=== PATIENT | female | born 2000 | race Caucasian/White ===

== ENCOUNTER 2019-05-27 18:53 | Inpatient (IN) | payer MEDICAID ==
[2019-05-27] MEDS ORDERED: Tranexamic Acid 1,000 MG in Sodium Chloride 0.9% 100 ML IV PRN (20:56)
[2019-05-27] MEDS ORDERED: Sodium Chloride 0.9% 10 ML SDV IV PRN ×2 (20:56→23:32)
[2019-05-27] MEDS ORDERED: Ondansetron 4 MG/2 ML SDV IVPUSH PRN (20:56)
[2019-05-27] MEDS ORDERED: Lidocaine 1% 50 ML MDV INJECT PRN (20:56)
[2019-05-27] MEDS ORDERED: Water For Irrigation,Sterile 1,000 ML Container IRR PRN (20:56)
[2019-05-27] MEDS ORDERED: Misoprostol 200 MCG Tab PO PRN (20:56)
[2019-05-27] MEDS ORDERED: Carboprost Tromethamine 250 MCG/1 ML Amp IM PRN (20:56)
[2019-05-27] MEDS ORDERED: Nalbuphine 10 MG/1 ML Vial IVPUSH PRN (20:56)
[2019-05-27] MEDS ORDERED: Methylergonovine 0.2 MG/1 ML Amp IM PRN (20:56)
[2019-05-27] MEDS ORDERED: Butorphanol 1 MG/ML SDV IVPUSH PRN (20:56)
[2019-05-27] MEDS ORDERED: Sodium Chloride 0.9% 2.5 ML Syringe FLUSH PRN ×2 (20:56→23:32)
[2019-05-27] MEDS ORDERED: Terbutaline 1 MG/ML SDV SUBCUT PRN (20:56)
[2019-05-27] MEDS ORDERED: Sodium Chloride 0.9% 10 ML Syringe FLUSH PRN ×2 (20:56→23:32)
[2019-05-27] MEDS ORDERED: Oxytocin/0.9 % Sodium Chloride 30 UNIT/500 ML BAG IV SCH ×2 (21:00)
[2019-05-27] MEDS: Lactated Ringers 1,000 ML IV SCH ×2 (22:02→23:26)
[2019-05-27 22:20] LABS: BLOOD UREA NITROGEN,BUN 9 mg/dL (7.0-18.0); CARBON DIOXIDE,CO2 20.5 mmol/L (21.0-32.0); CHLORIDE,CL 105 mmol/L (98-107); GLUCOSE RANDOM 73 mg/dL (74-106); POTASSIUM,K 3.7 mmol/L (3.5-5.1); SODIUM,NA 140 mmol/L (136-145)
[2019-05-27] MEDS ORDERED: Calcium Gluconate 10% 1 GM/10 ML SDV IV PRN (23:32)
[2019-05-27] MEDS ORDERED: Magnesium Sulfate/Water 4 GM in Premix Bag 1 BAG IV ONE (23:32)
[2019-05-27] MEDS ORDERED: Ropivacaine HCl/PF 100 ML ONE (23:52)
[2019-05-27] MEDS ORDERED: fentaNYL 100 MCG/2 ML SDV ONE (23:52)
--- NOTE | 2019-05-28 00:33 | PCM.PREANE ---
Preanesthetic Assessment - Anesthesia/Transfusion/Family Hx Anesthesia History: Prior Anesthesia Without Reaction Family History of Anesthesia Reaction: No - Physical Assessment NPO Status Date: 05/27/19 NPO Status Time: 22:00 Height: 1.63 m Weight: 74.389 kg ASA Class: 1 - Lab Values: Laboratory Last Values WBC 12.72 K/uL (4.0-11.0) H 05/27/19 21:42 RBC 3.89 M/uL (4.30-5.90) L 05/27/19 21:42 Hgb 11.3 g/dL (12.0-16.0) L 05/27/19 21:42 Hct 34.0 % (36.0-46.0) L 05/27/19 21:42 MCV 87.4 fL (80.0-98.0) 05/27/19 21:42 MCH 29.0 pg (27.0-32.0) 05/27/19 21:42 MCHC 33.2 g/dL (31.0-37.0) 05/27/19 21:42 RDW Std Deviation 40.2 fl (28.0-62.0) 05/27/19 21:42 RDW Coeff of Clint 13 % (11.0-15.0) 05/27/19 21:42 Plt Count 281 K/uL (150-400) 05/27/19 21:42 MPV 10.90 fL (7.40-12.00) 05/27/19 21:42 Nucleated RBC % 0.0 /100WBC 05/27/19 21:42 Nucleated RBCs # 0 K/uL 05/27/19 21:42 Sodium 140 mmol/L (136-145) 05/27/19 21:42 Potassium 3.7 mmol/L (3.5-5.1) 05/27/19 21:42 Chloride 105 mmol/L (98-107) 05/27/19 21:42 Carbon Dioxide 20.5 mmol/L (21.0-32.0) L 05/27/19 21:42 BUN 9 mg/dL (7.0-18.0) 05/27/19 21:42 Creatinine 0.6 mg/dL (0.6-1.0) 05/27/19 21:42 Est Cr Clr Drug Dosing TNP 05/27/19 21:42 Estimated GFR (MDRD) > 60.0 ml/min 05/27/19 21:42 Glucose 73 mg/dL (74-106) L 05/27/19 21:42 Uric Acid 6.0 mg/dL (2.6-7.2) 05/27/19 21:42 Calcium 8.6 mg/dL (8.5-10.1) 05/27/19 21:42 Total Bilirubin 0.1 mg/dL (0.2-1.0) L 05/27/19 21:42 AST 14 IU/L (15-37) L 05/27/19 21:42 ALT 16 IU/L (14-63) 05/27/19 21:42 Alkaline Phosphatase 134 U/L (46-116) H 05/27/19 21:42 Total Protein 6.7 g/dL (6.4-8.2) 05/27/19 21:42 Albumin 2.5 g/dL (3.4-5.0) L 05/27/19 21:42 Globulin 4.2 g/dL (2.6-4.0) H 05/27/19 21:42 Albumin/Globulin Ratio 0.6 (0.9-1.6) L 05/27/19 21:42 Ur Random Creatinine 66.6 mg/dL 05/27/19 19:00 U Random Total Protein 28.4 mg/dL (<11.9) H 05/27/19 19:00 Protein/Creatinin Ratio 0.4 05/27/19 19:00 Blood Type O NEGATIVE 05/27/19 21:42 Antibody Screen NEGATIVE 05/27/19 21:42 - Allergies Allergies/Adverse Reactions: Allergies Allergy/AdvReac Type Severity Reaction Status Date / Time pollen extracts Allergy Facial Verified 05/06/19 17:46 Swelling - Acknowledgements Anesthesia Type Planned: Epidural Pt an Appropriate Candidate for the Planned Anesthesia: Yes Alternatives and Risks of Anesthesia Discussed w Pt/Guardian: Yes Pt/Guardian Understands and Agrees with Anesthesia Plan: Yes PreAnesthesia Questionnaire - CURRENT (IN HOUSE) MEDS Current Meds: Current Medications Butorphanol Tartrate (Stadol) 1 mg IVPUSH Q1H PRN PRN Reason: Pain Calcium Gluconate (Calcium Gluconate) 1 gm IV ASDIRECTED PRN PRN Reason: respiratory distress Carboprost Tromethamine (Hemabate Ds) 250 mcg IM ASDIRECTED PRN PRN Reason: Post Hemorrhage Lactated Ringer's (Ringers, Lactated) 1,000 mls @ 150 mls/hr IV ASDIRECTED RITO Last Admin: 05/27/19 23:26 Dose: 999 mls/hr Oxytocin/Sodium Chloride (Oxytocin 30 Unit/500 Ml-Ns) 30 unit in 500 mls @ 555 mls/hr IV TITRATE RITO Oxytocin/Sodium Chloride (Oxytocin 30 Unit/500 Ml-Ns) 30 unit in 500 mls @ 2 mls/hr IV TITRATE RITO; Protocol Last Titration: 05/27/19 22:45 Dose: 4 munits/min, 4 mls/hr Tranexamic Acid 1,000 mg/ (Sodium Chloride) 110 mls @ 660 mls/hr IV ONETIME PRN PRN Reason: Bleeding Magnesium Sulfate (Magnesium Sulfate In Water Premix) 20 gm in 500 mls @ 50 mls /hr IV ASDIRECTED RITO; Protocol Lidocaine HCl (Xylocaine 1%) 50 ml INJECT ONETIME PRN PRN Reason: Laceration repair Methylergonovine Maleate (Methergine) 0.2 mg IM ASDIRECTED PRN PRN Reason: Post Hemorrhage Misoprostol (Cytotec) 200 mcg PO ONETIME PRN PRN Reason: Post Hemorrhage Nalbuphine HCl (Nubain) 10 mg IVPUSH Q1H PRN PRN Reason: Pain (severe 7-10) Ondansetron HCl (Zofran) 4 mg IVPUSH Q4H PRN PRN Reason: Nausea/Vomiting Sodium Chloride (Saline Flush) 10 ml FLUSH ASDIRECTED PRN PRN Reason: Keep Vein Open Sodium Chloride (Saline Flush) 2.5 ml FLUSH ASDIRECTED PRN PRN Reason: Keep Vein Open Sodium Chloride (Normal Saline) 10 ml IV ASDIRECTED PRN PRN Reason: IV Use Sodium Chloride (Saline Flush) 10 ml FLUSH ASDIRECTED PRN PRN Reason: Keep Vein Open Sodium Chloride (Saline Flush) 2.5 ml FLUSH ASDIRECTED PRN PRN Reason: Keep Vein Open Sodium Chloride (Normal Saline) 10 ml IV ASDIRECTED PRN PRN Reason: IV Use Sterile Water (Sterile Water For Irrigation) 1,000 ml IRR ASDIRECTED PRN PRN Reason: delivery Terbutaline Sulfate (Brethine) 0.25 mg SUBCUT ASDIRECTED PRN PRN Reason: Tacysystole Discontinued Medications Fentanyl (Sublimaze) Confirm Administered Dose 100 mcg .ROUTE .STK-MED ONE Stop: 05/27/19 23:53 Magnesium Sulfate 4 gm/ Premix 100 mls @ 300 mls/hr IV BOLUS ONE Stop: 05/27/19 23:51 Ropivacaine (Naropin 0.2%) Confirm Administered Dose 100 mls @ as directed .ROUTE .STK-MED ONE Stop: 05/27/19 23:53
--- NOTE | 2019-05-28 00:37 | PCM.PRNOTE ---
- Free Text/Narrative Note: Anes Note Patient requests epidural for L&D. Sitting position. Level L3-L4 midline approach. Sterile technique. Chloraprep scrub to lumbar area. Sterile fenestrated drape applied. Epidural space easily achieved single attempt with ease using NISHA technique. NISHA at 3 cm. Cath threaded 5 cm with ease. Cath secured at skin using sterile clear adhesive dressing. Test 2348 3 cc 1.5% lido with epi neg. 2351 Load 10 cc 0.2% ropivicaine with 1 mcg cc fentanyl in slow divided doses. 0005 Pump started with 90 cc same solution. rate is 8 cc hr with 6 cc q 20 min prn bolus. Humberto well. Time with patient [id number] Brayan Burton [employer] H[employer]ESS
[2019-05-28] MEDS: Magnesium Sulfate/Water 20 GM/500 ML BAG IV SCH ×2 (01:15→11:23)
--- NOTE | 2019-05-28 07:00 | PCM.DEL ---
L & D Note - General Info Date of Service: 05/28/19 Mother's Due Date: 05/31/19 - Delivery Note Labor: Augmented by ARM, Augmented by Oxytocin Delivery Outcome: Livebirth Delivery Method: Spontaneous Vaginal Delivery-Single Presentation: Left Occiput Anterior (SARWAT) Nuchal Cord: Present Prep: Other Anesthesia Type: Epidural Amniotic Fluid Description: Meconium Stained Episiotomy Type: None Laceration: 1st Degree Suture type: Vicryl Suture size: 3-0 Placenta: Intact, Spontaneous Cord: 3 Vessels Estimated Blood Loss: 300 Resuscitation Needed: No : Suctioned Score 1 min: 8 Score 5 min: 9 Delivery Comments (Free Text/Narrative):: Liveborn male weight 3450 grams. Magnesium for seizure prophylaxis through labor and due to pre-eclampsia. - General Info Date of Service: 05/28/19 - Patient Data Weight - Most Recent: 74.389 kg Lab Results Last 24 Hours: Laboratory Results - last 24 hr 05/27/19 05/27/19 05/27/19 Range/Units 19:00 21:42 21:42 WBC 12.72 H (4.0-11.0) K/uL RBC 3.89 L (4.30-5.90) M/uL Hgb 11.3 L (12.0-16.0) g/dL Hct 34.0 L (36.0-46.0) % MCV 87.4 (80.0-98.0) fL MCH 29.0 (27.0-32.0) pg MCHC 33.2 (31.0-37.0) g/dL RDW Std Deviation 40.2 (28.0-62.0) fl RDW Coeff of Clint 13 (11.0-15.0) % Plt Count 281 (150-400) K/uL MPV 10.90 (7.40-12.00) fL Nucleated RBC % 0.0 /100WBC Nucleated RBCs # 0 K/uL Sodium (136-145) mmol/L Potassium (3.5-5.1) mmol/L Chloride (98-107) mmol/L Carbon Dioxide (21.0-32.0) mmol/L BUN (7.0-18.0) mg/dL Creatinine (0.6-1.0) mg/dL Est Cr Clr Drug Dosing Estimated GFR (MDRD) ml/min Glucose (74-106) mg/dL Uric Acid (2.6-7.2) mg/dL Calcium (8.5-10.1) mg/dL Total Bilirubin (0.2-1.0) mg/dL AST (15-37) IU/L ALT (14-63) IU/L Alkaline Phosphatase (46-116) U/L Total Protein (6.4-8.2) g/dL Albumin (3.4-5.0) g/dL Globulin (2.6-4.0) g/dL Albumin/Globulin Ratio (0.9-1.6) Ur Random Creatinine 66.6 mg/dL U Random Total Protein 28.4 H (<11.9) mg/dL Protein/Creatinin Ratio 0.4 Blood Type O NEGATIVE Antibody Screen NEGATIVE 05/27/19 05/27/19 Range/Units 21:42 21:42 WBC (4.0-11.0) K/uL RBC (4.30-5.90) M/uL Hgb (12.0-16.0) g/dL Hct (36.0-46.0) % MCV (80.0-98.0) fL MCH (27.0-32.0) pg MCHC (31.0-37.0) g/dL RDW Std Deviation (28.0-62.0) fl RDW Coeff of Clint (11.0-15.0) % Plt Count (150-400) K/uL MPV (7.40-12.00) fL Nucleated RBC % /100WBC Nucleated RBCs # K/uL Sodium 140 (136-145) mmol/L Potassium 3.7 (3.5-5.1) mmol/L Chloride 105 (98-107) mmol/L Carbon Dioxide 20.5 L (21.0-32.0) mmol/L BUN 9 (7.0-18.0) mg/dL Creatinine 0.6 (0.6-1.0) mg/dL Est Cr Clr Drug Dosing TNP Estimated GFR (MDRD) > 60.0 ml/min Glucose 73 L (74-106) mg/dL Uric Acid 6.0 (2.6-7.2) mg/dL Calcium 8.6 (8.5-10.1) mg/dL Total Bilirubin 0.1 L (0.2-1.0) mg/dL AST 14 L (15-37) IU/L ALT 16 (14-63) IU/L Alkaline Phosphatase 134 H (46-116) U/L Total Protein 6.7 (6.4-8.2) g/dL Albumin 2.5 L (3.4-5.0) g/dL Globulin 4.2 H (2.6-4.0) g/dL Albumin/Globulin Ratio 0.6 L (0.9-1.6) Ur Random Creatinine mg/dL U Random Total Protein (<11.9) mg/dL Protein/Creatinin Ratio Blood Type Antibody Screen Med Orders - Current: Current Medications Butorphanol Tartrate (Stadol) 1 mg IVPUSH Q1H PRN PRN Reason: Pain Calcium Gluconate (Calcium Gluconate) 1 gm IV ASDIRECTED PRN PRN Reason: respiratory distress Carboprost Tromethamine (Hemabate Ds) 250 mcg IM ASDIRECTED PRN PRN Reason: Post Hemorrhage Lactated Ringer's (Ringers, Lactated) 1,000 mls @ 150 mls/hr IV ASDIRECTED RITO Last Infusion: 05/28/19 00:57 Dose: Infused Oxytocin/Sodium Chloride (Oxytocin 30 Unit/500 Ml-Ns) 30 unit in 500 mls @ 555 mls/hr IV TITRATE RITO Oxytocin/Sodium Chloride (Oxytocin 30 Unit/500 Ml-Ns) 30 unit in 500 mls @ 2 mls/hr IV TITRATE RITO; Protocol Last Titration: 05/27/19 22:45 Dose: 4 munits/min, 4 mls/hr Tranexamic Acid 1,000 mg/ (Sodium Chloride) 110 mls @ 660 mls/hr IV ONETIME PRN PRN Reason: Bleeding Magnesium Sulfate (Magnesium Sulfate In Water Premix) 20 gm in 500 mls @ 50 mls /hr IV ASDIRECTED RITO; Protocol Last Admin: 05/28/19 01:15 Dose: 2 gm/hr, 50 mls/hr Lidocaine HCl (Xylocaine 1%) 50 ml INJECT ONETIME PRN PRN Reason: Laceration repair Methylergonovine Maleate (Methergine) 0.2 mg IM ASDIRECTED PRN PRN Reason: Post Hemorrhage Misoprostol (Cytotec) 200 mcg PO ONETIME PRN PRN Reason: Post Hemorrhage Nalbuphine HCl (Nubain) 10 mg IVPUSH Q1H PRN PRN Reason: Pain (severe 7-10) Ondansetron HCl (Zofran) 4 mg IVPUSH Q4H PRN PRN Reason: Nausea/Vomiting Sodium Chloride (Saline Flush) 10 ml FLUSH ASDIRECTED PRN PRN Reason: Keep Vein Open Sodium Chloride (Saline Flush) 2.5 ml FLUSH ASDIRECTED PRN PRN Reason: Keep Vein Open Sodium Chloride (Normal Saline) 10 ml IV ASDIRECTED PRN PRN Reason: IV Use Sodium Chloride (Saline Flush) 10 ml FLUSH ASDIRECTED PRN PRN Reason: Keep Vein Open Sodium Chloride (Saline Flush) 2.5 ml FLUSH ASDIRECTED PRN PRN Reason: Keep Vein Open Sodium Chloride (Normal Saline) 10 ml IV ASDIRECTED PRN PRN Reason: IV Use Sterile Water (Sterile Water For Irrigation) 1,000 ml IRR ASDIRECTED PRN PRN Reason: delivery Terbutaline Sulfate (Brethine) 0.25 mg SUBCUT ASDIRECTED PRN PRN Reason: Tacysystole Discontinued Medications Fentanyl (Sublimaze) Confirm Administered Dose 100 mcg .ROUTE .STK-MED ONE Stop: 05/27/19 23:53 Magnesium Sulfate 4 gm/ Premix 100 mls @ 300 mls/hr IV BOLUS ONE Stop: 05/27/19 23:51 Last Admin: 05/28/19 00:50 Dose: 300 mls/hr Ropivacaine (Naropin 0.2%) Confirm Administered Dose 100 mls @ as directed .ROUTE .STK-MED ONE Stop: 05/27/19 23:53 - Problem List & Annotations (1) Pre-eclampsia SNOMED Code(s): 456564732 Code(s): O14.90 - UNSPECIFIED PRE-ECLAMPSIA, UNSPECIFIED TRIMESTER Status: Acute Current Visit: Yes (2) Vaginal delivery SNOMED Code(s): 366808064 Code(s): O80 - ENCOUNTER FOR FULL-TERM UNCOMPLICATED DELIVERY Status: Acute Current Visit: Yes - Problem List Review Problem List Initiated/Reviewed/Updated: Yes - My Orders Last 24 Hours: My Active Orders 05/27/19 20:56 Patient Status [ADT] Routine Bedrest Bathroom Privileges [RC] ASDIRECTED Communication Order [RC] ASDIRECTED Communication Order [RC] ASDIRECTED Communication Order [RC] ASDIRECTED Heart Tones [RC] CONTINUOUS Non Stress Test [RC] PER UNIT ROUTINE May Shower [RC] ASDIRECTED Notify Provider [RC] PRN Notify Provider [RC] PRN Notify Provider [RC] PRN Notify Provider [RC] STAT Oxygen Therapy [RC] ASDIRECTED Up ad Karli [RC] ASDIRECTED Vaginal Exam [RC] PRN Vaginal Exam [RC] PRN Vital Signs [RC] PER UNIT ROUTINE Vital Signs [RC] PER UNIT ROUTINE Butorphanol [Stadol] 1 mg IVPUSH Q1H PRN Carboprost Tromethamine [Hemabate DS] 250 mcg IM ASDIRECTED PRN Lidocaine 1% [Xylocaine 1%] 50 ml INJECT ONETIME PRN Methylergonovine [Methergine] 0.2 mg IM ASDIRECTED PRN Nalbuphine [Nubain] 10 mg IVPUSH Q1H PRN Ondansetron [Zofran] 4 mg IVPUSH Q4H PRN Sodium Chloride 0.9% [Normal Saline] 10 ml IV ASDIRECTED PRN Sodium Chloride 0.9% [Saline Flush] 10 ml FLUSH ASDIRECTED PRN Sodium Chloride 0.9% [Saline Flush] 2.5 ml FLUSH ASDIRECTED PRN Terbutaline [Brethine] 0.25 mg SUBCUT ASDIRECTED PRN Tranexamic Acid [Cyklokapron] 1,000 mg Sodium Chloride 0.9% [Normal Saline] 100 ml IV ONETIME Water For Irrigation,Sterile [Sterile Water for Irrigation] 1,000 ml IRR ASDIRECTED PRN miSOPROStoL [Cytotec] 200 mcg PO ONETIME PRN Scalp Electrode [WOMSER] Per Unit Routine Peripheral IV Insertion Adult [OM.PC] Routine Sequential Compression Device [OM.PC] Routine Resuscitation Status Routine 05/27/19 20:59 Antiembolic Devices [RC] PER UNIT ROUTINE 05/27/19 21:00 Lactated Ringers [Ringers, Lactated] 1,000 ml IV ASDIRECTED Oxytocin/0.9 % Sodium Chloride [Oxytocin 30 Unit/500 ML-NS] 30 unit in 500 ml IV TITRATE Oxytocin/0.9 % Sodium Chloride [Oxytocin 30 Unit/500 ML-NS] 30 unit in 500 ml IV TITRATE Medication Administration Instruction [OM.PC] Q3H 05/27/19 21:42 RPR (SYPHILIS SERO) W/ RFLX [REF] Routine 05/27/19 23:32 Bedrest [RC] ASDIRECTED Communication Order [RC] PRN Communication Order [RC] PRN Height and Weight [RC] DAILY Intake and Output [RC] QSHIFT Notify Provider [RC] PRN Oxygen Therapy [RC] PRN Vital Signs [RC] PER UNIT ROUTINE Calcium Gluconate 1 gm IV ASDIRECTED PRN Sodium Chloride 0.9% [Normal Saline] 10 ml IV ASDIRECTED PRN Sodium Chloride 0.9% [Saline Flush] 10 ml FLUSH ASDIRECTED PRN Sodium Chloride 0.9% [Saline Flush] 2.5 ml FLUSH ASDIRECTED PRN Electronic Heart Tones Ext w TOCO [WOMSER] Per Unit Routine Peripheral IV Insertion Adult [OM.PC] Routine 05/27/19 23:33 Equipment to Bedside [RC] PRN Heart Tones [RC] ASDIRECTED Notify Provider Status Change [RC] ASDIRECTED 05/27/19 23:45 Magnesium Sulfate/Water [Magnesium Sulfate in Water Premix] 20 gm in 500 ml IV ASDIRECTED Deep Tendon Reflexes [WOMSER] Q1H 05/27/19 Breakfast Fluid Restriction [DIET] 05/28/19 00:45 Deep Tendon Reflexes [WOMSER] Q1H 05/28/19 01:45 Deep Tendon Reflexes [WOMSER] Q1H 05/28/19 02:45 Deep Tendon Reflexes [WOMSER] Q1H 05/28/19 03:45 Deep Tendon Reflexes [WOMSER] Q1H 05/28/19 04:45 Deep Tendon Reflexes [WOMSER] Q1H 05/28/19 05:40 MAGNESIUM [CHEM] Q6H 05/28/19 05:45 Deep Tendon Reflexes [WOMSER] Q1H 05/28/19 06:45 Deep Tendon Reflexes [WOMSER] Q1H 05/28/19 07:45 Deep Tendon Reflexes [WOMSER] Q1H 05/28/19 08:45 Deep Tendon Reflexes [WOMSER] Q1H 05/28/19 09:45 Deep Tendon Reflexes [WOMSER] Q1H 05/28/19 10:45 Deep Tendon Reflexes [WOMSER] Q1H 05/28/19 11:45 MAGNESIUM [CHEM] Q6H Deep Tendon Reflexes [WOMSER] Q1H 05/28/19 12:45 Deep Tendon Reflexes [WOMSER] Q1H 05/28/19 13:45 Deep Tendon Reflexes [WOMSER] Q1H 05/28/19 14:45 Deep Tendon Reflexes [WOMSER] Q1H 05/28/19 15:45 Deep Tendon Reflexes [WOMSER] Q1 05/28/19 16:45 Deep Tendon Reflexes [WOMSER] Q1 05/28/19 17:45 MAGNESIUM [CHEM] Q6H Deep Tendon Reflexes [WOMSER] Q1 05/28/19 18:45 Deep Tendon Reflexes [WOMSER] Q1 05/28/19 19:45 Deep Tendon Reflexes [WOMSER] Q1 05/28/19 20:45 Deep Tendon Reflexes [WOMSER] Q1 05/28/19 21:45 Deep Tendon Reflexes [WOMSER] Q1 05/28/19 22:45 Deep Tendon Reflexes [WOMSER] Q1 05/28/19 23:45 MAGNESIUM [CHEM] Q6H
[2019-05-28] MEDS ORDERED: Docusate Sodium 100 MG Cap PO PRN (07:16)
[2019-05-28] MEDS ORDERED: Lanolin 100% Cream 7 GM Tube TOP PRN (07:16)
[2019-05-28] MEDS ORDERED: Bisacodyl 10 MG Supp RECTAL PRN (07:16)
[2019-05-28] MEDS ORDERED: Ibuprofen 400 MG Tab PO PRN (07:16)
[2019-05-28] MEDS ORDERED: Benzocaine/Menthol 20%-0.5% Spray 78 GM Cannister TOP PRN (07:16)
[2019-05-28] MEDS ORDERED: Acetaminophen 500 MG Tab PO PRN ×2 (07:16)
[2019-05-28] MEDS ORDERED: Witch Hazel Medicated Pads 40/Jar TOP PRN (07:16)
--- NOTE | 2019-05-28 08:42 | OR ---
SURGEON: Isabel Platt M.D. DATE OF PROCEDURE: 05/28/2019 PREOPERATIVE DIAGNOSES: 1. 39-3/7 weeks intrauterine . 2. Preeclampsia. POSTOPERATIVE DIAGNOSES: 1. 39-3/7 weeks intrauterine . 2. Preeclampsia. PROCEDURE: Pitocin augmentation of labor, artificial rupture of membranes, term spontaneous vaginal delivery, and repair of first-degree laceration. Continuing on magnesium for seizure prophylaxis. PRIMARY SURGEON: Isabel Platt M.D. ANESTHESIA: Epidural. ESTIMATED BLOOD LOSS: Less than 300 mL. FINDINGS: Liveborn male, scores of 8 and 9, weighing 3450 g. Placenta was spontaneous, Drake with trailing membranes, did not require manual examination. First-degree perineal laceration repaired. COMPLICATIONS: None known. DISPOSITION: Stable to recovery. BRIEF HISTORY: This is a 18-year-old female. She is G3, P0-0-2-0 who presents at 39-3/7 weeks gestation with regular contractions. She was 3 cm dilated, 90% effaced, 0 station. However, diastolic blood pressures were persistently in the mid upper 90s. She denied headache or visual changes. Preeclamptic laboratories were negative except for elevated protein-creatinine ratio of 0.4. Additionally, she was hyperreflexic on examination, and therefore, decision was made to keep her, augment labor, and start magnesium for seizure prophylaxis. She did have a late [place]. She did have a history of herpes remotely by serology only. She has had no lesions during the , and bright light examination at the onset of labor was negative, and she is known to be group B streptococcus negative. She received Pitocin up to a maximum dose of 4 milliunits per minute, and she received an epidural for pain control. When she was 6 cm to 7 cm dilated, artificial rupture of membranes was performed. Blood- stained amniotic fluid was noted. She continued to have category 1 heart tones throughout labor. She began to have deceleration. She was checked and was complete. DESCRIPTION OF PROCEDURE: With the patient in dorsal lithotomy position, the patient pushed over a 15- minute time period to a 5+ station at which time, the head was delivered spontaneously and atraumatically over the perineum with support. Nuchal cord was noted, but I was able to deliver through the nuchal cord with the 's shoulders and body without any difficulty. The nuchal cord was reduced. The was handed to the mother in the presence of the nurse attending delivery. The amniotic fluid at delivery was meconium stained. The was bulb suctioned by nose and mouth. The mouth was wiped, and after the cord had ceased to pulsate, it was doubly clamped and cut. Cord blood was collected for cord ABGs as well as routine cord blood sampling. Pitocin was initiated after delivery of the infant to assist with delivery. The placenta which was delivered spontaneously Drake intact but with trailing membranes. The membranes were repetitively turned and without a significant traction delivered, and upon careful inspection of the placenta, it was intact. Upon inspection of the pelvis and perineum, there were no periurethral, vaginal sidewall, cervical, or rectal lacerations. There was a superficial perineal laceration that was repaired with a running deep suture for the perineum and a subcuticular suture for the skin. This did not extend into the vagina. Final sponge, needle, and instrument counts were correct. There were no known complications. Mother and baby remained in LDR in good condition. She will be continued on magnesium . YOEL / GANGA /[id number]
--- NOTE | 2019-05-28 09:37 | PCM48HPAN ---
Post Anesthesia Note - EVALUATION WITHIN 48HRS OF ANESTHETIC Vital Signs in Normal Range: Yes Patient Participated in Evaluation: Yes Respiratory Function Stable: Yes Airway Patent: Yes Cardiovascular Function Stable: Yes Hydration Status Stable: Yes Pain Control Satisfactory: Yes Nausea and Vomiting Control Satisfactory: Yes Mental Status Recovered: Yes
[2019-05-28] MEDS: Ibuprofen 800 MG Tab PO PRN ×2 (09:58→20:06)
--- NOTE | 2019-05-29 05:23 | PCM.PNPP ---
- General Info Date of Service: 05/29/19 Admission Dx/Problem (Free Text): Patient reports she is doing well. Denies preeclampsia symptoms, headache yesterday resolved with Ibuprofen. Minimal-moderate lochia. Minimal cramping pain. going well. Has not ambulated or voided yet due to magnesium. Functional Status: Reports: Pain Controlled - Review of Systems General: Reports: No Symptoms HEENT: Reports: No Symptoms Pulmonary: Reports: No Symptoms Cardiovascular: Reports: No Symptoms Gastrointestinal: Reports: No Symptoms Genitourinary: Reports: No Symptoms Musculoskeletal: Reports: No Symptoms Skin: Reports: No Symptoms Neurological: Reports: No Symptoms Psychiatric: Reports: No Symptoms - Patient Data Vital Signs - Most Recent: Last Vital Signs Temp 37.0 C 05/28/19: Pulse 88 05/28/19 19: Resp 17 05/28/19: BP 130/85 05/28/19 19: Pulse Ox 99 05/28/19 19:20 Weight - Most Recent: 74.389 kg I&O - Last 24 Hours: Intake & Output 05/28/19 05/28/19 05/29/19 14:59 22:59 06:59 Intake Total 1025 Output Total 3375 Balance -2350 Lab Results - Last 24 Hours: Laboratory Results - last 24 hr 05/28/19 05/28/19 05/28/19 Range/Units 05:40 06:24 07:40 Cord ABG pH 7.210 (7.18-7.38) Cord ABG Base Excess -8 (-10--2) Cord VBG pH 7.238 L (7.25-7.45) Cord VBG Base Excess -9 (-10--2) Magnesium 4.3 H (1.8-2.4) mg/dL Screen NEGATIVE (NEGATIVE) RhIG Candidate? YES Rhogam Indicated YES, BABY RH POS H 05/28/19 05/28/19 05/28/19 Range/Units 11:28 17:28 22:50 Cord ABG pH (7.18-7.38) Cord ABG Base Excess (-10--2) Cord VBG pH (7.25-7.45) Cord VBG Base Excess (-10--2) Magnesium 5.5 H 6.2 H 6.3 H (1.8-2.4) mg/dL Screen (NEGATIVE) RhIG Candidate? Rhogam Indicated Med Orders - Current: Current Medications Acetaminophen (Tylenol Extra Strength) 500 mg PO Q4H PRN PRN Reason: Pain Acetaminophen (Tylenol Extra Strength) 1,000 mg PO Q4H PRN PRN Reason: Pain Last Admin: 05/28/19 12:49 Dose: 1,000 mg Benzocaine/Menthol (Dermoplast Pain Relief 20%-0.5% [place]) 78 gm TOP ASDIRECTED PRN PRN Reason: Perineal Comfort Measure Bisacodyl (Dulcolax) 10 mg RECTAL ONETIME PRN PRN Reason: Constipation Calcium Gluconate (Calcium Gluconate) 1 gm IV ASDIRECTED PRN PRN Reason: respiratory distress Carboprost Tromethamine (Hemabate Ds) 250 mcg IM ASDIRECTED PRN PRN Reason: Post Hemorrhage Docusate Sodium (Colace) 100 mg PO BID PRN PRN Reason: Constipation Emollient Ointment (Lansinoh Hpa) 0 gm TOP ASDIRECTED PRN PRN Reason: Sore Nipples Lactated Ringer's (Ringers, Lactated) 1,000 mls @ 150 mls/hr IV ASDIRECTED RITO Last Infusion: 05/28/19 00:57 Dose: Infused Oxytocin/Sodium Chloride (Oxytocin 30 Unit/500 Ml-Ns) 30 unit in 500 mls @ 555 mls/hr IV TITRATE RITO Last Admin: 05/28/19 06:26 Dose: 555 mls/hr Oxytocin/Sodium Chloride (Oxytocin 30 Unit/500 Ml-Ns) 30 unit in 500 mls @ 2 mls/hr IV TITRATE RITO; Protocol Last Titration: 05/27/19 22:45 Dose: 4 munits/min, 4 mls/hr Tranexamic Acid 1,000 mg/ (Sodium Chloride) 110 mls @ 660 mls/hr IV ONETIME PRN PRN Reason: Bleeding Magnesium Sulfate (Magnesium Sulfate In Water Premix) 20 gm in 500 mls @ 50 mls /hr IV ASDIRECTED RITO; Protocol Last Titration: 05/28/19 22:06 Dose: Infused Ibuprofen (Motrin) 400 mg PO Q4H PRN PRN Reason: Pain Ibuprofen (Motrin) 800 mg PO Q6H PRN PRN Reason: Pain Last Admin: 05/28/19 20:06 Dose: 800 mg Lidocaine HCl (Xylocaine 1%) 50 ml INJECT ONETIME PRN PRN Reason: Laceration repair Misoprostol (Cytotec) 200 mcg PO ONETIME PRN PRN Reason: Post Hemorrhage Ondansetron HCl (Zofran) 4 mg IVPUSH Q4H PRN PRN Reason: Nausea/Vomiting Sodium Chloride (Saline Flush) 10 ml FLUSH ASDIRECTED PRN PRN Reason: Keep Vein Open Sodium Chloride (Saline Flush) 2.5 ml FLUSH ASDIRECTED PRN PRN Reason: Keep Vein Open Sodium Chloride (Normal Saline) 10 ml IV ASDIRECTED PRN PRN Reason: IV Use Sodium Chloride (Saline Flush) 10 ml FLUSH ASDIRECTED PRN PRN Reason: Keep Vein Open Sodium Chloride (Saline Flush) 2.5 ml FLUSH ASDIRECTED PRN PRN Reason: Keep Vein Open Sodium Chloride (Normal Saline) 10 ml IV ASDIRECTED PRN PRN Reason: IV Use Witch Liana (Tucks) 1 pad TOP ASDIRECTED PRN PRN Reason: comfort care Discontinued Medications Butorphanol Tartrate (Stadol) 1 mg IVPUSH Q1H PRN PRN Reason: Pain Fentanyl (Sublimaze) Confirm Administered Dose 100 mcg .ROUTE .STK-MED ONE Stop: 05/27/19 23:53 Magnesium Sulfate 4 gm/ Premix 100 mls @ 300 mls/hr IV BOLUS ONE Stop: 05/27/19 23:51 Last Admin: 05/28/19 00:50 Dose: 300 mls/hr Ropivacaine (Naropin 0.2%) Confirm Administered Dose 100 mls @ as directed .ROUTE .STK-MED ONE Stop: 05/27/19 23:53 Methylergonovine Maleate (Methergine) 0.2 mg IM ASDIRECTED PRN PRN Reason: Post Hemorrhage Nalbuphine HCl (Nubain) 10 mg IVPUSH Q1H PRN PRN Reason: Pain (severe 7-10) Sterile Water (Sterile Water For Irrigation) 1,000 ml IRR ASDIRECTED PRN PRN Reason: delivery Last Admin: 05/28/19 06:25 Dose: 1,000 ml Terbutaline Sulfate (Brethine) 0.25 mg SUBCUT ASDIRECTED PRN PRN Reason: Tacysystole - Interaction Disposition, : in Room with Family Interaction: Other (see below) (partner holding ) Infant Feeding: Attempted ; Nursed Fair/Poor Support Person: Significant Other - Recovery Exam Fundal Tone: Firm Fundal Level: 1 Fingerbreadths Below Umbilicus Fundal Placement: Midline Lochia Amount: Scant Lochia Color: Rubra/Red Bladder Status: Indwelling Catheter in Place Urinary Elimination: Indwelling Catheter - Exam General: Alert, Oriented Neck: Supple Lungs: Clear to Auscultation, Normal Respiratory Effort Cardiovascular: Regular Rate, Regular Rhythm GI/Abdominal Exam: Soft, Non-Tender Extremities: Non-Tender, No Pedal Edema Skin: Warm, Dry, Intact Neurological: No New Focal Deficit Psy/Mental Status: Alert, Normal Affect, Normal Mood - Problem List & Annotations (1) Pre-eclampsia SNOMED Code(s): 688400346 Code(s): O14.90 - UNSPECIFIED PRE-ECLAMPSIA, UNSPECIFIED TRIMESTER Status: Acute Current Visit: Yes (2) Vaginal delivery SNOMED Code(s): 773182207 Code(s): O80 - ENCOUNTER FOR FULL-TERM UNCOMPLICATED DELIVERY Status: Acute Current Visit: Yes - Problem List Review Problem List Initiated/Reviewed/Updated: Yes - Assessment Assessment:: 18yo s/p , PPD#1 - Plan Plan:: 1. Preeclampsia with severe features - D/C Magnesium at 24 hours . Blood pressures normal, no symptoms. Continue to monitor blood pressures. 2. Continue to encourage . 3. Dispo - stay to monitor blood pressures until day #2.
--- NOTE | 2019-05-30 08:15 | PCM.PNPP ---
- General Info Date of Service: 05/30/19 Admission Dx/Problem (Free Text): Denies preeclampsia symptoms. going well. Minimal-moderate lochia. Functional Status: Reports: Pain Controlled, Tolerating Diet, Ambulating, Urinating - Review of Systems General: Reports: No Symptoms HEENT: Reports: No Symptoms Pulmonary: Reports: No Symptoms Cardiovascular: Reports: No Symptoms Gastrointestinal: Reports: No Symptoms Genitourinary: Reports: No Symptoms Musculoskeletal: Reports: No Symptoms Skin: Reports: No Symptoms Neurological: Reports: No Symptoms Psychiatric: Reports: No Symptoms - Patient Data Vital Signs - Most Recent: Last Vital Signs Temp 36.8 C 05/30/19 04:55 Pulse 86 05/30/19 04:55 Resp 16 05/30/19 04:55 BP 120/81 05/30/19 04:55 Pulse Ox 97 05/30/19 04:55 Weight - Most Recent: 70.4 kg Lab Results - Last 24 Hours: Laboratory Results - last 24 hr 05/27/19 05/28/19 Range/Units 21:42 07:40 RPR Non-Reac (Non-Reac) Screen NEGATIVE (NEGATIVE) RhIG Candidate? YES Rhogam Indicated YES, BABY RH POS H Med Orders - Current: Current Medications Acetaminophen (Tylenol Extra Strength) 500 mg PO Q4H PRN PRN Reason: Pain Acetaminophen (Tylenol Extra Strength) 1,000 mg PO Q4H PRN PRN Reason: Pain Last Admin: 05/28/19 12:49 Dose: 1,000 mg Benzocaine/Menthol (Dermoplast Pain Relief 20%-0.5% [place]) 78 gm TOP ASDIRECTED PRN PRN Reason: Perineal Comfort Measure Bisacodyl (Dulcolax) 10 mg RECTAL ONETIME PRN PRN Reason: Constipation Calcium Gluconate (Calcium Gluconate) 1 gm IV ASDIRECTED PRN PRN Reason: respiratory distress Carboprost Tromethamine (Hemabate Ds) 250 mcg IM ASDIRECTED PRN PRN Reason: Post Hemorrhage Docusate Sodium (Colace) 100 mg PO BID PRN PRN Reason: Constipation Emollient Ointment (Lansinoh Hpa) 0 gm TOP ASDIRECTED PRN PRN Reason: Sore Nipples Lactated Ringer's (Ringers, Lactated) 1,000 mls @ 150 mls/hr IV ASDIRECTED RITO Last Infusion: 05/28/19 00:57 Dose: Infused Oxytocin/Sodium Chloride (Oxytocin 30 Unit/500 Ml-Ns) 30 unit in 500 mls @ 555 mls/hr IV TITRATE RITO Last Admin: 05/28/19 06:26 Dose: 555 mls/hr Oxytocin/Sodium Chloride (Oxytocin 30 Unit/500 Ml-Ns) 30 unit in 500 mls @ 2 mls/hr IV TITRATE RITO; Protocol Last Titration: 05/27/19 22:45 Dose: 4 munits/min, 4 mls/hr Tranexamic Acid 1,000 mg/ (Sodium Chloride) 110 mls @ 660 mls/hr IV ONETIME PRN PRN Reason: Bleeding Magnesium Sulfate (Magnesium Sulfate In Water Premix) 20 gm in 500 mls @ 50 mls /hr IV ASDIRECTED RITO; Protocol Last Titration: 05/28/19 22:06 Dose: Infused Ibuprofen (Motrin) 400 mg PO Q4H PRN PRN Reason: Pain Ibuprofen (Motrin) 800 mg PO Q6H PRN PRN Reason: Pain Last Admin: 05/28/19 20:06 Dose: 800 mg Lidocaine HCl (Xylocaine 1%) 50 ml INJECT ONETIME PRN PRN Reason: Laceration repair Misoprostol (Cytotec) 200 mcg PO ONETIME PRN PRN Reason: Post Hemorrhage Ondansetron HCl (Zofran) 4 mg IVPUSH Q4H PRN PRN Reason: Nausea/Vomiting Sodium Chloride (Saline Flush) 10 ml FLUSH ASDIRECTED PRN PRN Reason: Keep Vein Open Sodium Chloride (Saline Flush) 2.5 ml FLUSH ASDIRECTED PRN PRN Reason: Keep Vein Open Sodium Chloride (Normal Saline) 10 ml IV ASDIRECTED PRN PRN Reason: IV Use Sodium Chloride (Saline Flush) 10 ml FLUSH ASDIRECTED PRN PRN Reason: Keep Vein Open Sodium Chloride (Saline Flush) 2.5 ml FLUSH ASDIRECTED PRN PRN Reason: Keep Vein Open Sodium Chloride (Normal Saline) 10 ml IV ASDIRECTED PRN PRN Reason: IV Use Witch Liana (Tucks) 1 pad TOP ASDIRECTED PRN PRN Reason: comfort care Last Admin: 05/29/19 10:39 Dose: 1 tub Discontinued Medications Butorphanol Tartrate (Stadol) 1 mg IVPUSH Q1H PRN PRN Reason: Pain Fentanyl (Sublimaze) Confirm Administered Dose 100 mcg .ROUTE .STK-MED ONE Stop: 05/27/19 23:53 Magnesium Sulfate 4 gm/ Premix 100 mls @ 300 mls/hr IV BOLUS ONE Stop: 05/27/19 23:51 Last Admin: 05/28/19 00:50 Dose: 300 mls/hr Ropivacaine (Naropin 0.2%) Confirm Administered Dose 100 mls @ as directed .ROUTE .STK-MED ONE Stop: 05/27/19 23:53 Methylergonovine Maleate (Methergine) 0.2 mg IM ASDIRECTED PRN PRN Reason: Post Hemorrhage Nalbuphine HCl (Nubain) 10 mg IVPUSH Q1H PRN PRN Reason: Pain (severe 7-10) Sterile Water (Sterile Water For Irrigation) 1,000 ml IRR ASDIRECTED PRN PRN Reason: delivery Last Admin: 05/28/19 06:25 Dose: 1,000 ml Terbutaline Sulfate (Brethine) 0.25 mg SUBCUT ASDIRECTED PRN PRN Reason: Tacysystole - Interaction Disposition, : [place] in Room with Family Infant Interaction: Holding Infant Infant Feeding: Attempted ; Nursed Fair/Poor Support Person: Significant Other - Recovery Exam Fundal Tone: Firm Fundal Level: 2 Fingerbreadths Below Umbilicus Fundal Placement: Midline Lochia Amount: Scant Lochia Color: Rubra/Red Bladder Status: Voiding Urinary Elimination: Voided - Exam General: Alert, Oriented Neck: Supple Lungs: Clear to Auscultation, Normal Respiratory Effort Cardiovascular: Regular Rate GI/Abdominal Exam: Soft, Non-Tender Extremities: Non-Tender, No Pedal Edema Skin: Warm, Dry, Intact Neurological: No New Focal Deficit Psy/Mental Status: Alert, Normal Affect, Normal Mood - Problem List & Annotations (1) Pre-eclampsia SNOMED Code(s): 798974266 Code(s): O14.90 - UNSPECIFIED PRE-ECLAMPSIA, UNSPECIFIED TRIMESTER Status: Acute Current Visit: Yes (2) Vaginal delivery SNOMED Code(s): 491794607 Code(s): O80 - ENCOUNTER FOR FULL-TERM UNCOMPLICATED DELIVERY Status: Acute Current Visit: Yes - Problem List Review Problem List Initiated/Reviewed/Updated: Yes - My Orders Last 24 Hours: My Active Orders 05/30/19 08:13 Ready for Discharge [RC] PER UNIT ROUTINE - Assessment Assessment:: 18yo s/p , PPD#2 - Plan Plan:: 1. Preeclampsia with severe features - s/p magnesium for seizure prophylaxis. Denies symptoms. Blood pressures wnl. Will schedule patient for BP check in 1 week. 2. Continue to encourage . 3. Dispo - discharge to home today, reviewed discharge instructions.
== END 2019-05-30 18:00 | disposition home or self-care (01) | DRG 807 ==
LOC: MW.OBCHECK 18:53 → MW.OB 18:54 → MW.OBCHECK 20:56 → MW.OB 20:56 → OBSVTOIN 05-28 06:24 → MW.OB 05-28 15:16
PROVIDERS: ADMIT Obstetrics & Gynecology; ATTEND Obstetrics & Gynecology
PROC: 10E0XZZ Delivery of Products of Conception, External Approach (ICD-10-PCS; principal; 2019-05-28)
PROC: 10907ZC Drainage of Amniotic Fluid, Therapeutic from Products of Conception, Via Natural or Artificial Opening (ICD-10-PCS; 2019-05-28)
PROC: 0HQ9XZZ Repair Perineum Skin, External Approach (ICD-10-PCS; 2019-05-28)
PROC: 3E0R3BZ Introduction of Anesthetic Agent into Spinal Canal, Percutaneous Approach (ICD-10-PCS; 2019-05-28)
PROC: 00HU33Z Insertion of Infusion Device into Spinal Canal, Percutaneous Approach (ICD-10-PCS; 2019-05-28)
DX: O14.14 Severe pre-eclampsia complicating childbirth (principal); Z37.0 Single live birth; O69.81X0 Labor and delivery complicated by cord around neck, without compression, not applicable or unspecified; O70.0 First degree perineal laceration during delivery; O77.0 Labor and delivery complicated by meconium in amniotic fluid; Z3A.39 39 weeks gestation of pregnancy
CPT/HCPCS: 01967; 36415; 36430; 51702; 59025; 59409; 80053; 82570; 82803; 83735; 84156; 84550; 85014; 85018; 85027; 85460; 86592; 86850; 86900; 86901; A9270-GY; J2590; J2792; J3475; J7120

== ENCOUNTER 2021-11-05 10:41 | Emergency (ER) | payer MEDICAID | END 2021-11-05 12:33 | disposition left against medical advice (07) | LOC: MW.ED 10:41 | DX: Z53.21 Procedure and treatment not carried out due to patient leaving prior to being seen by health care provider (principal) ==